=== PATIENT | female | born 1970 | race Caucasian/White ===

== ENCOUNTER 2019-01-15 04:59 | Inpatient (IN) ==
[2019-01-15] MEDS ORDERED: LABETALOL IV ONE ×2 (05:27→10:52)
[2019-01-15] MEDS ORDERED: LABETALOL ONE (05:35)
[2019-01-15] MEDS ORDERED: LASIX IV ONE ×2 (05:55→10:18)
--- NOTE | 2019-01-15 06:02 | PROVIDER DOCUMENTATION ---
HPI-Cardiac General - General Chief Complaint: Palpitations Stated Complaint: PALPITATIONS Time Seen by Provider: 01/15/19 05:01 Source: patient, family Allergies/Adverse Reactions: Patient Allergies Allergy/AdvReac Type Severity Reaction Status Date / Time No Known Allergies Allergy Verified 01/15/19 05:13 Home Medications: Home Medication List Medication Instructions Recorded Confirmed Last Taken Type Amlodipine [Norvasc] 10 mg PO DAILY #30 tab 01/17/19 Unknown Rx Hydralazine [Apresoline] 25 mg PO TID@0800,1400,2100 #90 tab 01/17/19 Unknown Rx Levothyroxine Sodium [Synthroid] 50 mcg PO DAILY #30 tab 01/17/19 Unknown Rx Losartan Potassium 100 mg PO DAILY #30 tab 01/17/19 Unknown Rx Metformin [Glucophage] 500 mg PO BID CC #60 tab 01/17/19 Unknown Rx - History of Present Illness-Cardiac Nature of Presenting Problem: 48 y/o WF c/o cough and palpitations for the last 3 days. Pt states that she has been taking otc cough meds of uri and hasnt taken her BP meds for the past 5 years. Pt denies any CP or SOB. Quality of Pain: reports: none Severity in ED: mild Onset/Duration: 3 days ago Timing: still present Context/Activities at Onset: reports: light activity Modifying Factors: improves with: coughing Palpitation Quality: fast/pounding heart beat History of arrythmia: reports: none Recent use of:: reports: decongestant Nitro Today/Relief: reports: no nitro taken today Aspirin Treatment Today: reports: no aspirin today Prior Chest Pain/Cardiac Workup: reports: no prior chest pain Associated Symptoms: reports: denies symptoms Similar Symptoms Previously?: No Recently Seen Here or By Another Healthcare Provider: No Review of Systems - Adult - REVIEW OF SYSTEMS - ADULT Constitutional: reports: no symptoms reported, see HPI Eyes: reports: no symptoms reported, see HPI Ears, Nose, Mouth & Throat: reports: no symptoms reported, see HPI Cardiovascular: reports: see HPI, palpitations Respiratory: reports: see HPI, cough Gastrointestinal: reports: no symptoms reported, see HPI Genitourinary: reports: no symptoms reported, see HPI Musculoskeletal: reports: no symptoms reported, see HPI Integumentary: reports: no symptoms reported, see HPI Neurological: reports: no symptoms reported, see HPI Psychiatric: reports: no symptoms reported, see HPI Endocrine: reports: no symptoms reported, see HPI Hematologic/Lymphatic: reports: no symptoms reported, see HPI Allergic/Immunologic: reports: no symptoms reported, see HPI All Other Systems: Reviewed and Negative Past History - Adult - PAST MEDICAL HISTORY-ADULT Review of Records: reports: Nursing Assessment Review, Medications Reviewed, Social history reviewed & non-contributory. Physical Exam-General - PHYSICAL EXAM-ADULT Initial Vital Signs Reviewed: Yes - CONSTITUTIONAL General Appearance: appears well, alert, no apparent distress - EYES Eyes: PERRL/EOMI - HEAD, EARS, NOSE, MOUTH & THROAT HENMT: normocephalic/atraumatic, moist mucous membranes, normal ENT inspection - NECK Neck: non-tender, full range of motion, supple, normal inspection - RESPIRATORY Respiratory: chest non-tender, lungs clear, normal breath sounds, no pleuratic chest pain, no respiratory distress, no accessory muscle use - CARDIOVASCULAR Cardiovascular: normal peripheral pulses, no gallop, tachycardia, other (BLE +2) - GASTROINTESTINAL (ABDOMEN) Abdominal Exam: normal bowel sounds, non tender, soft, no organomegaly, no pulsatile mass - LYMPHATIC Lymphatic: no adenopathy - MUSCULOSKELETAL Back Exam: normal inspection, no CVA tenderness, no vertebral tenderness Extremity: normal range of motion, non-tender, normal gait, normal inspection, no calf tenderness, normal capillary refill, pedal edema - SKIN Integumentary: normal color, normal turgor - NEUROLOGIC Neurologic: multimedia manager II-XII nml as tested, grossly normal, no motor/sensory deficits - PSYCHIATRIC Psych/Mental Status: normal mood/affect, normal thought content, normal thought process, oriented x 3 - HEART Score HEART Score: History: Slightly Suspicious HEART Score: ECG: Non-Specific Repolarization Disturbance/LBBB/PM HEART Score: Age: 45-65 Years HEART Score: Risk Factors for Atherosclerotic Disease: 1 or 2 Risk Factors HEART Score: Troponin: < or = Normal Limit Total HEART Score:: 3 Progress - PLAN OF CARE/RESULTS Progress/Plan/Lab Results: Orders Category Date Time Status Admit - [facility] Routine AdmDCTranf 01/15/19 10:54 Active Activity - Up with Assistance ORDERED Care 01/15/19 10:54 Active FSBS/Accucheck Result AC + HS Care 01/15/19 11:54 Active Intake and Output-Strict ORDERED Care 01/15/19 10:54 Active Nursing- Obtain EKG ONCE Care 01/15/19 05:02 Completed Vital Signs Order Q 4-HR ASSESS Care 01/15/19 10:54 Active Z-Document. for Tele Applied ORDERED Care 01/15/19 10:56 Completed Heart Healthy Diet Diet 01/15/19 10:55 Completed CHEST-2 VIEWS [RAD] Stat Exams 01/15/19 07:57 Completed cxr [CHEST-1 VIEW] [RAD] Stat Exams 01/15/19 05:02 Completed A1C HGB W EST AVG GLUCOSE [CHEM] Routine Lab 01/15/19 05:32 Completed BASIC METABOLIC PANEL [CHEM] Routine Lab 01/16/19 05:14 Completed CBC WITH ELECTRONIC DIFF [HEME] Stat Lab 01/15/19 05:32 Completed CBC WITH NO DIFF [HEME] Routine Lab 01/16/19 05:14 Completed COMPREHENSIVE METABOLIC PANEL [CHEM] Stat Lab 01/15/19 05:32 Completed FREE T4 Stat Lab 01/15/19 05:32 Completed PRO B-NATRIURETIC PEPTIDE Stat Lab 01/15/19 05:32 Completed TROPONIN T Stat Lab 01/15/19 05:32 Completed TSH Stat Lab 01/15/19 05:32 Com[address] URINE DRUG SCREEN PL Stat Lab 01/15/19 07:15 Completed Acetaminophen [Tylenol] Med 01/15/19 10:54 Discontinued 650 mg PO Q6H PRN PRN Furosemide [Lasix] Med 01/15/19 05:55 Discontinued 40 mg IV NOW ONE Furosemide [Lasix] Med 01/15/19 10:18 Discontinued 40 mg IV NOW ONE Insulin Lispro ([place]) [Humalog ([place])] Med 01/15/19 16:00 Discontinued See Protocol SUBQ 0700,1100,1600,2100 Labetalol Med 01/15/19 05:35 Discontinued 100 mg .ROUTE .STK-MED ONE Labetalol Med 01/15/19 05:27 Discontinued 20 mg IV NOW ONE Labetalol Med 01/15/19 10:52 Discontinued 20 mg IV NOW ONE Levothyroxine [Synthroid] Med 01/15/19 11:13 Discontinued 50 microgm PO DAILY@0700 Losartan [Cozaar] Med 01/15/19 11:15 Discontinued 50 mg PO DAILY Telemetry [OM.EQ] Routine Oth 01/15/19 10:54 Active EKG [EKG] Stat Ther 01/15/19 05:01 Draft Transfer/Admit Order [TRANSFER] Routine Transfer 01/15/19 12:38 Completed Result Diagrams: 01/16/19 05:14 01/16/19 05:14 - CHANGE OF SHIFT REPORT (ED Provider) 1 Report Given and Care Transferred to:: Dr Parisi Time of Transfer: 07:00 Items Pending: Labs, XRAY Results Departure - Departure Date of Disposition Decision: 01/15/19 Time of Disposition Decision: 11:55 DIAGNOSIS: Palpitations, Uncontrolled hypertension Disposition: ADMITTED INPATIENT 09 Certified Medical Emergency: Emergent Condition: Fair - Critical Care Note This patient required my direct & personal management of CC.: No Attestation - Physician/ MIGUEL Attestation Patient care was provided by Advanced Practice Provider:: No The physician spent face to face time with patient:: Yes Advanced Practice Provider documentation review:: Supervising physician onsite and consulted in the evaluation and care of this patient. The physician did have a face to face encounter with the patient.
[2019-01-15 06:15] LABS: AGAP 13; ALBUMIN 4.4 g/dL (3.5-5.0); ALKALINE PHOSPHATASE 98 U/L (32-104); BUN 12 mg/dL (8-22); CALCIUM 8.5 mg/dL (8.8-10.2); CHLORIDE 100 mmol/L (98-107); COSMO 283; CREATININE 0.7 mg/dL (0.5-0.9); ESTIMATED GFR > 60; GLUCOSE 201 mg/dL (70-104); GOT 16 U/L (10-30); GPT 17 U/L (10-36); POTASSIUM 3.9 mmol/L (3.5-5.1); SODIUM 139 mmol/L (136-145); TCO2 26 mmol/L (25-35); TOTAL PROTEIN 7.3 g/dL (6.3-8.3)
[2019-01-15 06:22] LABS: HEMATOCRIT 34.2 % (37.0-47.0); HEMOGLOBIN 9.9 g/dL (12.0-16.0); MCH 21.2 PG (27-31); MCHC 28.9 g/dL (33-37); MCV 73.2 FL (81-99); MPV 10.8 FL (7.4-10.4); PLT 296 X1000 (130-400); RBC 4.67 XMIL (4.2-5.4); RDW 17.4 % (11.5-14.5); WBC 8.43 X1000 (4.8-10.8)
[2019-01-15 06:23] LABS: BASO# 0.03 X1000 (0.0-0.2); BASO% 0.4 % (0.0-0.8); EOS# 0.17 X1000 (0.0-0.7); IMM GRAN# 0.02 X1000 (0.0-0.04); IMM GRAN% 0.2 % (0.0-0.5); LYMPH# 2.83 X1000 (1.2-3.4); LYMPH% 33.6 % (20.5-51.1); MONO# 0.72 X1000 (0.11-0.59); MONO% 8.5 % (1.7-9.3); NEUT# 4.66 X1000 (1.4-6.5); NEUT% 55.3 % (42.2-75.2)
--- NOTE | 2019-01-15 07:15 | Diag Imaging Result Doc PS360 ---
EXAM: CHEST-1 VIEW 01/15/2019 HISTORY: palpitations TECHNIQUE: AP chest at 0542 COMMENT: There is cardiomegaly. The inspiration is somewhat suboptimal. There is increased interstitial opacity particularly in the right upper lobe. There are no previous studies. IMPRESSION: Cardiomegaly and mild pulmonary edema. Electronically signed by Adrian Bal 01/15/2019 7:12 AM
[2019-01-15 08:20] LABS: UR AMPHETAMINES QUAL NONE DETECTED (NONE DETECT); UR BARBITUATES QUAL NONE DETECTED (NONE DETECT); UR BENZODIAZEPIN QUAL NONE DETECTED (NONE DETECT); UR CANNABINOIDS QUAL NONE DETECTED (NONE DETECT); UR COCAINE QUAL NONE DETECTED (NONE DETECT); UR METHADONE QUAL NONE DETECTED (NONE DETECT); UR METHAMPHETAMINE QUAL NONE DETECTED (NONE DETECT); UR OPIATES QUAL NONE DETECTED (NONE DETECT); UR OXYCODONE QUAL PRESUMPTIVE POSITIVE (NONE DETECT); UR PCP QUAL NONE DETECTED (NONE DETECT); UR PROPOXYPHENE QUAL NONE DETECTED (NONE DETECT); UR TCA QUAL NONE DETECTED (NONE DETECT)
--- NOTE | 2019-01-15 08:48 | Diag Imaging Result Doc PS360 ---
EXAM: CHEST-2 VIEWS 01/15/2019 HISTORY: pulmonary edema TECHNIQUE: PA and lateral chest COMMENT: There is cardiomegaly. There is some ill-defined opacity in the right lower lobe. The opacity which was previously present in the right upper lobe on 01/15/2019 at 0542 is no longer demonstrated. IMPRESSION: Improved pulmonary edema. Electronically signed by Adrian Bal 01/15/2019 8:46 AM
--- NOTE | 2019-01-15 09:16 | ED EKG INTERP ---
This chart was entered by Todd Fileds Scribe, acting as scribe for Sahil Parisi MD. EKG Interpretation - EKG Time of EKG reading by physician:: 05:20 EKG Read and Signed by:: Sahil Parisi EKG Interpretation (*Must complete 3 of following elements*): Abnormal Rate: 130 Rhythm: sinus tachycardia [place]: left (left axis deviation) QRS: normal UT Interval: normal ST Wave: normal Comments: imcomplete right bundle branch block Attestation - Physician/ MIGUEL Attestation Patient care was provided by Advanced Practice Provider:: No The physician spent face to face time with patient:: Yes Advanced Practice Provider documentation review:: Supervising physician onsite and consulted in the evaluation and care of this patient. The physician did have a face to face encounter with the patient. This chart was documented by the indicated scribe, (Todd Fields Scribe) and accurately reflects the services I performed and decisions made by me, Sahil Parisi MD, as attested by the provider's signature.
--- NOTE | 2019-01-15 09:24 | EKG Report ---
Test Performed on : 01/15/2019 05:20:32 AM Test Reason : palpitations Blood Pressure : / mmHG Vent. Rate : 130 BPM Atrial Rate : 130 BPM P-R Int : 140 ms QRS Dur : 102 ms QT Int : 310 ms P-R-T Axes : 029 -43 053 degrees QTc Int : 456 ms Sinus tachycardia. Left axis deviation Incomplete right bundle branch block Abnormal ECG No previous ECGs available Unconfirmed Result
[2019-01-15] MEDS ORDERED: TYLENOL PO PRN (10:54)
[2019-01-15 11:34] LABS: HEMOGLOBIN A1C 8.1 % (4.8-6.0)
--- NOTE | 2019-01-15 12:13 | HISTORY AND PHYSICAL ---
CHIEF COMPLAINT: Palpitations. HISTORY OF PRESENT ILLNESS: This is a 48-year-old female with a history of hypertension and medical noncompliance who presents to the emergency room complaining of palpitations for the last 3 days. She states that she has had a cough for about the last week. She has taken NyQuil at times for this. She started having palpitations about 3 days ago. She describes these as "my heart keeps going boom, boom, boom inside of my chest." She states she had an episode like this probably about 15 years ago. At that time she was diagnosed with hypertension. She has not had insurance over the last 5 years and she states she has been off her antihypertensives during this time. PAST MEDICAL HISTORY: Hypertension. PAST SURGICAL HISTORY: Cholecystectomy. SOCIAL HISTORY: She smokes about a half a pack a day. Denies alcohol or illicit drug use. ALLERGIES: No known drug allergies. HOME MEDICATIONS: None. REVIEW OF SYSTEMS: Discussed with patient with pertinent positives stated in the HPI. She denied any syncope or dizziness, any chest pain, any shortness of breath, productive cough, any fevers or chills, any PND, orthopnea, nausea, vomiting, diarrhea, constipation, black or bloody vomitus or stools, hematuria, dysuria, frequency, urgency. PHYSICAL EXAMINATION: GENERAL: This is a 48-year-old female who is sitting up in the stretcher in the emergency room in no distress. VITAL SIGNS: Blood pressure is 217/116 with a heart rate of 103, respirations are 20, temperature 98 degrees with room air saturations 100%. EYES: Pupils equal, round, react to light. EOMs are intact. Sclerae anicteric. HEENT: Head is normocephalic, atraumatic. Mucous membranes are moist. NECK: Supple with trachea midline. CARDIOVASCULAR: Regular rate and rhythm. S1 and S2 appreciated. No murmur. Calves are nontender bilateral. She does have bilateral lower extremity edema that is 2+ with right leg larger than left, which the patient states is normal. Peripheral pulses palpable x4 extremities. PULMONARY: Breath sounds are clear. No increased work of breathing noted. Chest rises and falls symmetric with respiration. GASTROINTESTINAL: Abdomen is soft, nontender, nondistended. Bowel sounds in all 4 quadrants. GENITOURINARY: No CVA or suprapubic tenderness. NEUROLOGIC: Alert and oriented x3. SKIN: Warm and dry. LABS: WBC is 8.4 with a hemoglobin of 9.9, hematocrit 34.2, platelets 296,000. Sodium 139, potassium 3.9, BUN 12, creatinine 0.7 with a glucose of 201. Troponin is negative. TSH is 7.57 with a free T4 of 1.21. Urine drug screen is presumptive positive for oxycodone. Chest x-ray reveals cardiomegaly with pulmonary edema. EKG a sinus tachycardia at a rate of 130 with what appears to be incomplete right bundle branch block. ASSESSMENT AND PLAN: Uncontrolled hypertension. Hypothyroid Hyperglycemia Telemetry strict I and O. Cozaar 50 mg p.o. daily, levothyroxine 50 mcg p.o. daily with 1st dose given today. hemoglobin A1c. CBC and a BMP in the morning. Plan discussed with Dr Whitlock Further treatments pending hospital course. Dictated by MAJO Liz for Arpan Whitlock MD cc: MAJO Liz MD [facility]
--- NOTE | 2019-01-15 12:41 | HISTORY AND PHYSICAL ---
Addendum Report The patient was seen and examined by myself. Full note dictated and discussed with nurse practitioner. Patient presented to the hospital with palpitations, states she felt some chest pressure and headache. She has a known history of high blood pressure but notes that she has not actually been taking her blood pressure medications recently. On presentation to the ER, blood pressures were 240/130. We are going to admit her to the hospital. Currently, blood pressures are 180s. She is feeling better. We are going to continue blood pressure control and will follow. cc: Arpan Whitlock MD
[2019-01-15] MEDS: SYNTHROID PO SCH (15:08)
[2019-01-15] MEDS: COZAAR PO SCH (15:09)
[2019-01-15] MEDS: CARDENE 20 MG/NS 20 MG/200 ML PIGGYBACK IV SCH ×4 (16:20→22:03)
[2019-01-15] MEDS: HUMALOG (PARKWAY) SUBQ SCH ×2 (16:35→20:39)
[2019-01-16 06:52] LABS: HEMATOCRIT 34.9 % (37.0-47.0); HEMOGLOBIN 9.8 g/dL (12.0-16.0); MCH 20.7 PG (27-31); MCHC 28.1 g/dL (33-37); MCV 73.6 FL (81-99); MPV 11.5 FL (7.4-10.4); RBC 4.74 XMIL (4.2-5.4); RDW 17.9 % (11.5-14.5); WBC 8.78 X1000 (4.8-10.8)
[2019-01-16] MEDS: SYNTHROID PO SCH (06:52)
[2019-01-16] MEDS: HUMALOG (PARKWAY) SUBQ SCH ×4 (06:54→23:11)
[2019-01-16 07:07] LABS: AGAP 11; BUN 8 mg/dL (8-22); CALCIUM 8.5 mg/dL (8.8-10.2); CHLORIDE 102 mmol/L (98-107); COSMO 284; CREATININE 0.6 mg/dL (0.5-0.9); ESTIMATED GFR > 60; GLUCOSE 150 mg/dL (70-104); POTASSIUM 3.8 mmol/L (3.5-5.1); SODIUM 142 mmol/L (136-145); TCO2 30 mmol/L (25-35)
[2019-01-16] MEDS: COZAAR PO SCH (09:46)
[2019-01-16] MEDS ORDERED: COZAAR PO ONE (12:15)
[2019-01-16] MEDS: APRESOLINE PO SCH ×2 (15:00→20:02)
[2019-01-16] MEDS ORDERED: COZAAR ONE (16:26)
--- NOTE | 2019-01-16 19:05 | PROGRESS NOTE ---
DATE: 01/16/2019 SUBJECTIVE: Patient notes overall she is feeling fine. Denies any chest pain or palpitation. Denies any fevers or chills. Denies headaches or blurred vision. PHYSICAL EXAMINATION: Temperature 98, pulse 90, BP 122/83 while she was on losartan 50 and Cardizem. Elevated to 150s and 170s once the Cardene drip had stopped.HEENT: Normocephalic. Neck: Supple. Cardiovascular: Regular rate. Chest: Clear. Abdomen: Soft. Extremities: Moves all extremities. ASSESSMENT: 1. Hypertension. We are going to stop the Cardene drip. Her blood pressure is elevated slightly as to be expected. We are going to increase her losartan to 100 daily and add hydralazine and will follow. 2. Chronic tobacco abuse. Again discussed with patient the perils of smoking and reasons to stop. PLAN: As noted above. We will transfer her to the floor and follow. cc: Arpan Whitlock MD
[2019-01-17] MEDS: SYNTHROID PO SCH (06:21)
[2019-01-17] MEDS: HUMALOG (PARKWAY) SUBQ SCH (06:22)
[2019-01-17] MEDS: APRESOLINE PO SCH (08:33)
[2019-01-17] MEDS ORDERED: NORVASC PO SCH (09:00)
[2019-01-17] MEDS ORDERED: PNEUMOVAX 23 IM ONE (09:00)
[2019-01-17] MEDS ORDERED: COZAAR PO SCH (09:00)
[2019-01-17 11:50] VITALS: BP 152/100
--- NOTE | 2019-01-18 09:56 | DISCHARGE SUMMARY ---
ADMISSION DATE: 01/15/2019 DISCHARGE DATE: 01/17/2019 ADMISSION DIAGNOSES: 1. Uncontrolled hypertension. 2. Hypothyroidism. 3. Hyperglycemia. DISCHARGE DIAGNOSES: 1. Hypertension. 2. Chronic tobacco abuse. CONSULTATIONS: None. SURGERIES AND PROCEDURES: None. HOSPITAL COURSE: On 01/15/2019, Ms. Mayi Dwyer, a 48-year-old female with a history of hypertension and medical noncompliance, presented to the emergency department complaining of palpitations for at least 3 days. She had been having a cough the week prior to, was taking NyQuil at times for that. Started developing the palpitations 3 days prior to admission. Apparently, she has been off her antihypertensives for at least 5 years due to not having medical insurance for 5 years. She had a blood pressure of 217/116 on presentation, and was started on a Cardene drip. Her oral Cozaar was resumed as well, and once her blood pressure was more controlled, her symptoms started to resolve. She was eventually on Norvasc, Apresoline, and Cozaar. Cardene drip was stopped. Blood pressure maintained 140s up to as high as 170s/80s to 90s. The symptoms resolved. She was deemed appropriate for discharge home. DISCHARGE VITAL SIGNS: Temperature 98.1 degrees, heart rate 102, respiratory rate 18, blood pressure 152/100, O2 saturation is 98% on room air. DISCHARGE LABORATORY DATA: White blood cells 8000, hemoglobin 9, hematocrit 34, platelet count 321,000. Sodium 142, potassium 3.8, BUN 8, creatinine 0.6, glucose on discharge was 239. PERTINENT IMAGING: Chest x-ray on 01/15/2019, there were two. First one showed cardiomegaly and mild pulmonary edema. Second one showed improved pulmonary edema. DISCHARGE DIET: Heart healthy. DISCHARGE ACTIVITY: As tolerated. DISCHARGE HOME MEDICATIONS: 1. Apresoline 25 mg p.o. t.i.d. 2. Metformin 500 mg p.o. twice daily. 3. Losartan potassium 100 mg p.o. daily. 4. Norvasc 10 mg p.o. daily. 5. Synthroid 50 mcg p.o. daily. DISCHARGE PHYSICIAN FOLLOWUP: She needs to follow up with the primary care provider. DISCHARGE INSTRUCTIONS: If her condition changes, contact physician and/or return to the emergency department. Changes may include, but are not limited to, shortness of breath, increased fatigue, excessive bleeding, unexplained weight loss or gain, unimaginable pain, signs or symptoms of infection. Please return if there is any chest pain, shortness of breath, tightness or pain in the arm, chest, jaw, or neck. Follow up with all of your appointments. Take prescribed medications as directed. DISCHARGE DISPOSITION: Home. Dictated by MAJO Vicente for Arpan Whitlock MD cc: MAJO Vicente MD
--- NOTE | 2019-01-18 10:13 | DISCHARGE SUMMARY ---
ADMISSION DATE: 01/15/2019 DISCHARGE DATE: 01/17/2019 ADDENDUM: Patient seen and examined by myself. Full note dictated and discussed with the nurse practitioner. On discharge, patient is awake, alert, in no distress. She was admitted to the hospital with hypertensive urgency, also noted to have elevated blood sugar and was diagnosed with diabetes. We are going to discharge her home on blood pressure medications as well as Synthroid 50 and metformin. Please see full note. cc: Arpan Whitlock MD
== END 2019-01-17 12:30 | disposition home or self-care (01) | DRG 305 ==
LOC: P.ED 04:59 → P.MEDSURG 13:48 → P.ICU 16:09 → P.MEDSURG 01-16 20:01
PROVIDERS: ATTEND Family Medicine